=== PATIENT | female | born 1985 | race Caucasian/White ===

== ENCOUNTER → 2020-04-29 | Outpatient (CLI) | payer BC ==
--- NOTE | 2020-04-29 11:50 | FL ---
EXAMINATION TYPE: FL barium swallow DATE OF EXAM: 04/29/2020 CLINICAL HISTORY: Dysphasia. Globus sensation with feeling of food getting stuck in neck for 1 month per patient. TECHNIQUE: A double contrast esophagram is performed utilizing air and barium. A total of 28 second s of fluoroscopic time was utilized during procedure and 37 images obtained COMPARISON: None FINDINGS: The esophagus shows satisfactory motility and emptying into the stomach. No diverticulum. No evidence of hiatal hernia or stricture noted. No intraluminal mass. No significant gastroesophagea l reflux was seen during real time performance of this study. IMPRESSION: No significant abnormality is seen to account for patient's symptoms.
== END | disposition home or self-care (01) ==
LOC: RADFLMAIN 11:03
PROVIDERS: ATTEND Otolaryngology
DX: R13.10 Dysphagia, unspecified (principal)
CPT/HCPCS: 74220

== ENCOUNTER 2020-07-17 09:07 | Day surgery (SDC) | payer BC ==
[2020-07-15 13:02] VITALS: BMI 28.2
[~2020-07-17 09:07] MED LIST: LACTATED RINGERS 1,000 ML IV SCH; LIDOCAINE 1% (10MG/ML) FOR IV START INTRADERMA PRN
[2020-07-17 09:39] VITALS: BP 122/72; PULSE 87; RESP 16; TEMP 97.6
[2020-07-17] MEDS ORDERED: LIDOCAINE 1% (10MG/ML) FOR IV START INTRADERMA ONE (09:41)
[2020-07-17] MEDS ORDERED: PROPOFOL 10 MG/ML 20 ML VIAL IV ONE (09:53)
[2020-07-17] MEDS ORDERED: LIDOCAINE 1% INJ 10MG/ML (20 ML MDV) ONE (09:53)
--- NOTE | 2020-07-17 10:03 | P.PCN ---
Date of Procedure: 07/17/20 Procedure(s) Performed: BRIEF HISTORY: Patient is a 34-year-old, pleasant, . white female scheduled for an upper endoscopy as a part of evaluation of rectal fullness and throat discomfort and intermittent dysphagia for the last 4 months duration PROCEDURE PERFORMED: Esophagogastroduodenoscopy biopsy . PREOPERATIVE DIAGNOSIS: Globus sensation in her throat areaIV sedation per anesthesia. PROCEDURE: After informed consent was obtained, the patient was brought into the endoscopy unit. IV sedation was administered by Anesthesia under continuous monitoring. Initially the Olympus GIF-140 video endoscope was inserted into the mouth. Esophagus intubated without any difficulty. It was gradually advanced into the stomach and duodenum and carefully examined. The bulb and the second part of the duodenum appeared normal. The scope at this time was withdrawn to the stomach, adequately insufflated with air, and upon careful examination, mucosa of the antrum had patchy areas of erythema which was biopsied. The body, cardia and the fundus appeared normal. The scope was then withdrawn into the esophagus. The GE junction was located at 39 cm from the incisors. There were 2 superficial erosions at the GE junction consistent with LA grade C reflux esophagitis. The rest of the esophagus appeared normal. Abscesses were done from the distal esophagus and the patient tolerated the procedure well. IMPRESSION: 1. 2 superficial erosions at the GE junction consistent with LA grade B reflux esophagitis 2. Mild antral gastritis RECOMMENDATIONS: The findings of this examination were discussed with the patient as well as a family. She was advised to follow with the biopsy results. Her symptoms could be related to GERD and hence she will be given a trial of Prilosec 20 mg daily to be taken half hour before breakfast and follow antireflux measures
== END 2020-07-17 10:45 | disposition home or self-care (01) ==
LOC: ORWHC2ENDO 09:07
PROVIDERS: ATTEND Internal Medicine Gastroenterology
DX: K21.00 Gastro-esophageal reflux disease with esophagitis, without bleeding (principal); K29.50 Unspecified chronic gastritis without bleeding; R13.10 Dysphagia, unspecified; Z79.899 Other long term (current) drug therapy
CPT/HCPCS: 81025; 88305; 43239; J2001; J2704

== ENCOUNTER 2021-12-09 19:31 | Outpatient (CLI) | payer BC ==
[2021-12-09] MEDS ORDERED: CALCIUM CARBONATE 500 MG CHEWABLE PO PRN (20:01)
[2021-12-09 21:25] LABS: ALT 35 U/L (4-34); AST 51 U/L (14-36)
[2021-12-09] MEDS ORDERED: PANTOPRAZOLE 40 MG TABLET PO STA (21:52)
[2021-12-09 22:45] VITALS: BP 129/69; PULSE 80; RESP 18; TEMP 96.6
--- NOTE | 2021-12-16 20:14 | P.MSEPDOC ---
Presenting Problems - Arrival Data Date of Arrival on Unit: 12/09/21 Time of Arrival on Unit: 19:31 Mode of Transport: Ambulatory - Complaint OB-Reason for Admission/Chief Complaint: Pain, Other Comment: 11/10 sharp upper abdominal pain that lasted 25 minutes and started at 1800. Medical History - Information : 1 Para: 0 Term: 0 : 0 Abortions: Spontaneous or Elective: 0 Number of Living Children: 0 - Gestational Age Gestational Age by ALLISNO (wks/days): 31 Weeks and 2 Days Review of Systems - Review of Systems Constitutional: No problems Breast: No problems ENT: No problems Cardiovascular: No problems Respiratory: No problems Gastrointestinal: No problems Genitourinary: No problems Musculoskeletal: No problems Neurological: No problems Skin: No problems Vital Signs - Temperature Temperature: 96.6 F Temperature Source: Temporal Artery Scan - Pulse Right Pulse Oximetery Pulse Rate: 80 Pulse Assessment Method: Pulse Oximetry - Respirations Respiratory Rate: 18 Oxygen Delivery Method: Room Air O2 Sat by Pulse Oximetry: 98 - Blood Pressure Right Arm Blood Pressure: 129/69 Blood Pressure Mean: 89 Blood Pressure Source: Automatic Cuff Medical Screen Scoring - Uterine Contractions Frequency From (mins): 0 Frequency To (mins): 0 - Assessment - Baby A Baseline FHR: 140 Heart Rate - NICHD Category: Category I (Normal) NST: Reactive Physician Notification - Physician Notified Physician Notified Date: 12/09/21 Physician Notified Time: 19:31 Physician: Phong Ortega Order Received: Yes ( Called prior to pt arrival with orders) - Notification Comment Comment: pt then discharged following treatment it TR Maternal Triage Index - Maternal Triage Index Presenting for scheduled procedure w/no complaint: No - Stat/Priority 1 Stat Priority 1: No - Urgent/Priority 2 Urgent Priority 2: No - Prompt/Priority 3 Prompt Priority 3: No - Non-Urgent/Priority 4 Non-Urgent Priority 4: Yes Criteria Met for Priority 4: upper abdominal pain Disposition - Disposition OB Disposition: Discharge to home Discharge Date: 12/09/21 Discharge Time: 22:12 I agree with the RN Medical Screening Exam: Yes Physician's MSE Comment: I have neither seen nor examined the patient. Case reviewed; plan agreed upon as documented in EMR&OBIX.: Yes Diagnosis: RELATED CONDITIONS, UNSPECIFIED, THIRD TRIMESTER
== END 2021-12-09 22:12 | disposition home or self-care (01) ==
LOC: FBPOP 19:31
PROVIDERS: ATTEND Obstetrics & Gynecology
DX: O26.893 Other specified pregnancy related conditions, third trimester (principal); R10.10 Upper abdominal pain, unspecified; Z3A.31 31 weeks gestation of pregnancy
CPT/HCPCS: 36415; 59025; 84450; 84460; 99213

== ENCOUNTER → 2021-12-14 | Outpatient (CLI) | payer BC ==
--- NOTE | 2021-12-14 08:09 | US ---
EXAMINATION TYPE: US abdomen limited DATE OF EXAM: 12/14/2021 COMPARISON: NONE CLINICAL HISTORY: R10.84 Abd pain, R94.5 Abn Liver Functions. TECHNIQUE: Multiple sonographic images of the right upper quadrant are obtained. 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
== END | disposition home or self-care (01) ==
LOC: RADUSWWP 07:39
PROVIDERS: ATTEND Obstetrics & Gynecology
DX: R94.5 Abnormal results of liver function studies (principal)
CPT/HCPCS: 76705

== ENCOUNTER 2022-02-08 06:13 | Inpatient (IN) | payer BC ==
[2022-02-08] MEDS ORDERED: LIDOCAINE 0.5% (PF) 5 MG/ML (50 ML SDV) SQ PRN (06:49)
[2022-02-08] MEDS ORDERED: TERBUTALINE 1 MG/ML VIAL SQ PRN (06:49)
[2022-02-08 06:58] LABS: Basophils % (A) 0 %; Eosinophils # (A) 0.1 k/uL (0-0.7); Eosinophils % (A) 1 %; HGB 13.4 gm/dL (11.4-16.0); Lymphocytes # (A) 1.8 k/uL (1.0-4.8); Lymphocytes % (A) 18 %; MCH 30.9 pg (25.0-35.0); MCHC 35.3 g/dL (31.0-37.0); MCV 87.7 fL (80.0-100.0); Mean Platelet Volume 8.6; Monocytes # (A) 0.6 k/uL (0-1.0); Monocytes % (A) 6 %; Neutrophils # (A) 7.4 k/uL (1.3-7.7); Neutrophils % (A) 73 %; Platelet Count 219 k/uL (150-450); RBC 4.33 m/uL (3.80-5.40); RDW 13.2 % (11.5-15.5); WBC 10.1 k/uL (3.8-10.6)
[2022-02-08] MEDS ORDERED: OXYTOCIN 30 UNITS/500 ML NS 30 UNIT in SALINE 1 500ML.BAG IV SCH (07:00)
[2022-02-08] MEDS: LACTATED RINGERS 1,000 ML IV SCH ×2 (07:23→12:00)
[2022-02-08 07:35] LABS: Glucose,Whole Blood 83 mg/dL (70-110)
[2022-02-08] MEDS ORDERED: BUTORPHANOL 1 MG/ML 1 ML VIAL IV PRN (08:51)
--- NOTE | 2022-02-08 09:59 | P.HPOB ---
History of Present Illness H&P Date: 02/08/22 Chief Complaint: Here for elective induction of labor This is a 36-year-old female 1 para 0 EDC 02/08/2022 at 40 weeks gestation who presents today for induction with favorable cervix. is remarkable for gestational diabetes, blood sugar 83 on admission this morning. Patient denies vaginal bleeding or fluid leakage. Fetus is been active throughout the . Past medical history is essentially negative. Past surgical history hysterosalpingogram. Current medications vitamins daily, baby aspirin daily. ALLERGIES none known. Family history significant for hypertension, breast cancer, lung cancer. Social history patient is , her is present and involved. She works for [employer]. She denies alcohol tobacco or drug use. history significant for blood type A-, rubella status immune. Pap smear, VDRL testing, urine culture, hepatitis B surface antigen, HIV testing, gonorrhea and chlamydia cultures, group B strep cultures all negative. One hour Glucola to 18, patient monitoring blood sugars at home consistent with gestational diabetes. On exam patient is 5 foot 6 inches, 189 pounds, blood pressure 139/78, pulse 94, patient is afebrile. The general physical exam is within normal limits. The cervix is 3-4 cm dilated, 60-70% effaced, -2 station, anterior, soft, vertex presentation. Artificial amniorrhexis reveals clear fluid, slightly blood tinged, dark blood. heart rate is consistent with reactive NST. Impression: 40 week intrauterine , advanced maternal age, here for induction of labor, gestational diabetes with good blood sugar control. All signs reassuring. Plan: Oxytocin per hospital protocol. Close maternal and surveillance. Analgesic options reviewed. Anticipate normal spontaneous vaginal delivery. Review of Systems Constitutional: Reports as per HPI Past Medical History Additional Past Medical History / Comment(s): "feels like has a lump in my t hroat or it catches on something" Pt states she had it looked into and hasn't noticed that for at least 2 years. gestational diabetes History of Any Multi-Drug Resistant Organisms: None Reported Past Surgical History: No Surgical Hx Reported Past Anesthesia/Blood Transfusion Reactions: No Reported Reaction, Motion Sickness Past Psychological History: No Psychological Hx Reported Smoking Status: Never smoker Past Alcohol Use History: None Reported Past Drug Use History: None Reported - Past Family History Mother Family Medical History: No Reported History Father Family Medical History: Cancer Additional Family Medical History / Comment(s): lung Medications and Allergies Home Medications Medication Instructions Recorded Confirmed Type Aspirin [Children's Aspirin] 81 mg PO DAILY 12/09/21 02/08/22 History Loratadine [Claritin] 5 mg PO DAILY 12/09/21 02/08/22 History Vit No.179/Iron/Folic 1 each PO DAILY 12/09/21 02/08/22 History [ Tablet] Allergies Allergy/AdvReac Type Severity Reaction Status Date / Time No Known Allergies Allergy Verified 02/08/22 06:45 Exam Vital Signs Temp Pulse Resp BP Pulse Ox 02/08/22 06:44 97.0 F L 94 16 139/78 98 Intake and Output 02/07/22 02/08/22 02/08/22 22:59 06:59 14:59 Other: Weight 85.729 kg See dictation under HPI please Results Result Diagrams: 02/08/22 06:40 Assessment and Plan Assessment: 40 week intrauterine , advanced maternal age, gestational diabetes with good blood sugar control, here for induction of labor with all signs reassuring. Plan: Oxytocin per hospital protocol. Analgesic options reviewed. Continue close maternal and surveillance. Anticipate normal spontaneous vaginal delivery. Time with Patient: Less than 30
[2022-02-08] MEDS ORDERED: ROPIVACAINE 5 MG/ML 20 ML AMPULE ONE (11:47)
[2022-02-08] MEDS ORDERED: SODIUM CHLORIDE 0.9% 100 ML BAG ONE (11:47)
[2022-02-08] MEDS ORDERED: fentaNYL (PF) 50 MCG/ML 5 ML AMP ONE (11:47)
[2022-02-08] MEDS ORDERED: ROPIVACAINE 100 MG, fentaNYL (PF). 200 MCG in SODIUM CHLORIDE 0.9% 76 ML EPIDURAL ONE (12:45)
[2022-02-08] MEDS ORDERED: diphenhydrAMINE ELIXIR 25 MG/10 ML CUP PO PRN (18:26)
[2022-02-08] MEDS ORDERED: ACETAMINOPHEN TAB 325 MG TAB PO PRN (18:26)
[2022-02-08] MEDS ORDERED: diphenhydrAMINE 50 MG CAP PO PRN (18:26)
[2022-02-08] MEDS ORDERED: BENZOCAINE/MENTHOL SPRAY 1 GM/SPRAY AEROSOL TOPICAL PRN (18:26)
[2022-02-08] MEDS ORDERED: HYDROCORTISONE 2.5% RECTAL CREAM 30 GM TUBE RECTAL PRN (18:26)
[2022-02-08] MEDS ORDERED: ZOLPIDEM 5 MG TAB PO PRN (18:26)
[2022-02-08] MEDS ORDERED: diphenhydrAMINE 50 MG/ML 1 ML VIAL IVP PRN ×2 (18:26)
[2022-02-08] MEDS ORDERED: diphenhydrAMINE 25 MG CAP PO PRN (18:26)
[2022-02-08] MEDS ORDERED: SIMETHICONE 80 MG CHEWABLE PO PRN (18:26)
[2022-02-08] MEDS ORDERED: LANOLIN CREAM 5 GM TUBE TOPICAL PRN (18:26)
--- NOTE | 2022-02-08 18:26 | P.PROBDLV ---
Vaginal Delivery Note - . Vaginal Delivery Note: This is a 36-year-old female 1 para 0 EDC 02/08/2022 at 40 weeks gestation who presented today for induction with gestational diabetes, advanced maternal age. Blood type is O-, group B strep cultures negative, rubella status immune. Please see dictated history and physical for details. Artificial amniorrhexis revealed clear fluid. Oxytocin was started and titrated per hospital protocol. Epidural was placed per the patient's request. She progressed well through the first stage of labor was judged to be completely dilated at 1715 hrs. Second stage of labor began at that time. With excellent maternal expulsive efforts, gradual station was accomplished. Ultimately the perineal body was prepped and draped in usual sterile fashion. 's head delivered occiput anterior and she restituted accordingly. There was a tight nuchal cord that was reduced easily. The left or anterior shoulder was delivered from underneath the pubic symphysis easily at which time the oropharynx, nasopharynx, and external nares were all bulb suctioned on the perineal body. Patient was officially delivered of a liveborn female at 1806 hrs. Umbilical cord was doubly clamped and ligated, she was handed to waiting nurses for evaluation where scores of 9 and 9 at one and 5 minutes respectively were given. Cord blood was sent to the lab for Rh- status. Placenta was delivered spontaneously with active management, it was inspected and noted to be intact with trivascular cord at 1808 hrs. Uterus is then massaged. Careful inspection of the cervix, vagina, perineum, periurethral, and perirectal areas revealed a small second-degree perineal laceration, injected with lidocaine and repaired in the usual fashion with repeat suture. Total estimated blood loss 200 mL's. All sponge needle and enhancement counts are correct. Infant weighs 8 lbs. 8 oz. or 3850 g. Patient is allowed to begin the bonding experience in the LDR.
[2022-02-08 19:25] VITALS: RESP 16
[2022-02-08] MEDS: IBUPROFEN 600 MG TAB PO SCH (19:32)
[2022-02-08] MEDS: SENNOSIDES-DOCUSATE SODIUM 1 EACH TAB PO SCH (19:33)
[2022-02-09] MEDS: IBUPROFEN 600 MG TAB PO SCH ×4 (00:38→21:07)
--- NOTE | 2022-02-09 07:55 | P.DS ---
Providers Date of admission: 02/08/22 06:13 Expected date of discharge: 02/09/22 Attending physician: Amanda Pearson Primary care physician: Stated None Hospital Course: This is a 36-year-old female 1 para 0 EDC 02/08/2022 weeks' gestation. Patient presented for induction of labor with favorable cervix. Blood type A-, rubella status immune, group B strep cultures negative. is remarkable for gestational diabetes, good control, admitting blood sugar 83. Please see dictated history and physical for details. Patient went on to deliver a liveborn female with scores of 9 and 9 at one and 5 minutes respectively. There was a nuchal cord 1, a second-degree perineal laceration. Infant weight 8 lbs. 8 oz., or 3850 g. Estimated blood loss 200 mL's. Please see dictated delivery note for details. This morning the patient is doing well. She is voiding, ambulating, passing flatus without difficulty. Vital signs are stable and she is afebrile. [place] infant is doing well. Breast-feeding is going well. Fundus is firm and in the midline, symmetric and 18 week size. Extremities are negative for edema. Patient is being discharged home and will follow-up with me in the office in 6 weeks. She is reminded no intercourse, tampons or douching. She will use [id number] Advil or Aleve, or Motrin as needed for pain. She will call with any fevers shakes or chills, foul smelling or copious lochia, with the passage of large blood clots, or indeed with any concerns. Contemplated contraceptive options and this will be discussed further in the office. Assessment: Doing well day #1 Patient Condition at Discharge: Good Plan - Discharge Summary Discharge Rx Participant: No New Discharge Prescriptions: No Action Aspirin [Children's Aspirin] 81 mg PO DAILY Vit No.179/Iron/Folic [ Tablet] 1 each PO DAILY Loratadine [Claritin] 5 mg PO DAILY Discharge Medication List Aspirin [Children's Aspirin] 81 mg PO DAILY 12/09/21 [History] Loratadine [Claritin] 5 mg PO DAILY 12/09/21 [History] Vit No.179/Iron/Folic [ Tablet] 1 each PO DAILY 12/09/21 [History] Follow up Appointment(s)/Referral(s): Amanda Pearson MD [STAFF PHYSICIAN] - 6 Weeks
[2022-02-09] MEDS: SENNOSIDES-DOCUSATE SODIUM 1 EACH TAB PO SCH ×2 (08:24→21:07)
[2022-02-09] MEDS: LACTATED RINGERS 1,000 ML IV SCH (08:32)
[2022-02-10] MEDS: IBUPROFEN 600 MG TAB PO SCH ×3 (02:05→13:46)
[2022-02-10 08:10] VITALS: PULSE 80
[2022-02-10] MEDS: SENNOSIDES-DOCUSATE SODIUM 1 EACH TAB PO SCH (08:11)
[2022-02-10 15:53] VITALS: BP 133/77; TEMP 98.6
== END 2022-02-10 17:47 | disposition home or self-care (01) | DRG 807 ==
LOC: 4FBP 06:13
PROVIDERS: ADMIT Obstetrics & Gynecology; ATTEND Obstetrics & Gynecology
PROC: 10E0XZZ Delivery of Products of Conception, External Approach (ICD-10-PCS; principal; 2022-02-08)
PROC: 0KQM0ZZ Repair Perineum Muscle, Open Approach (ICD-10-PCS; 2022-02-08)
PROC: 10907ZC Drainage of Amniotic Fluid, Therapeutic from Products of Conception, Via Natural or Artificial Opening (ICD-10-PCS; 2022-02-08)
PROC: 3E0R3BZ Introduction of Anesthetic Agent into Spinal Canal, Percutaneous Approach (ICD-10-PCS; 2022-02-08)
PROC: 3E033VJ Introduction of Other Hormone into Peripheral Vein, Percutaneous Approach (ICD-10-PCS; 2022-02-08)
DX: O24.429 Gestational diabetes mellitus in childbirth, unspecified control (principal); Z37.0 Single live birth; O69.1XX0 Labor and delivery complicated by cord around neck, with compression, not applicable or unspecified; O70.1 Second degree perineal laceration during delivery; Z79.82 Long term (current) use of aspirin; Z3A.40 40 weeks gestation of pregnancy
CPT/HCPCS: 82947; 85025; 86850; 86900; 86901

== ENCOUNTER 2023-09-20 06:00 | Inpatient (IN) | payer BC ==
[2023-09-20] MEDS ORDERED: METHYLERGONOVINE 0.2 MG/ML 1 ML AMP IM PRN (06:39)
[2023-09-20] MEDS ORDERED: miSOPROStoL 200 MCG TAB PO PRN (06:39)
[2023-09-20] MEDS ORDERED: TRANEXAMIC 1,000 MG/100ML-NACL 1,000 MG in EMPTY BAG 1 BAG IV PRN (06:39)
[2023-09-20] MEDS ORDERED: CARBOPROST TROMETHAMINE 250 MCG/ML 1 ML AMP IM PRN (06:39)
[2023-09-20] MEDS ORDERED: TERBUTALINE 1 MG/ML VIAL SQ PRN (06:39)
[2023-09-20] MEDS ORDERED: OXYTOCIN 10 UNIT/ML 1 ML VIAL IM PRN (06:39)
[2023-09-20 06:43] LABS: Glucose,Whole Blood 87 mg/dL (70-110)
[2023-09-20] MEDS: LACTATED RINGERS 1,000 ML IV SCH (06:54)
[2023-09-20] MEDS: OXYTOCIN 30 UNITS/500 ML NS 30 UNIT in SALINE 1 500ML.BAG IV SCH (06:55)
[2023-09-20 06:58] LABS: Basophils % (A) 0 %; Eosinophils # (A) 0.1 k/uL (0-0.7); Eosinophils % (A) 1 %; HCT 37.2 % (34.0-46.0); HGB 12.3 gm/dL (11.4-16.0); Lymphocytes # (A) 2.2 k/uL (1.0-4.8); Lymphocytes % (A) 22 %; MCHC 33.2 g/dL (31.0-37.0); MCV 90.4 fL (80.0-100.0); Mean Platelet Volume 8.7; Monocytes # (A) 0.7 k/uL (0-1.0); Monocytes % (A) 7 %; Neutrophils # (A) 6.8 k/uL (1.3-7.7); Neutrophils % (A) 69 %; Platelet Count 171 k/uL (150-450); RBC 4.11 m/uL (3.80-5.40); RDW 13.4 % (11.5-15.5); WBC 9.9 k/uL (3.8-10.6)
--- NOTE | 2023-09-20 08:56 | P.HPOB ---
History of Present Illness H&P Date: 09/20/23 Chief Complaint: Scheduled induction of labor Ms. Rosenberg is a 38 year old at 39 weeks and 1 day with EDC of 09/26/2023 who presents for scheduled induction of labor for diet-controlled gestational diabetes. She has been undergoing surveillance which has all been reassuring. The is also complicated by congenitally short right femur for which she has had a consultation with MFM as well as [place] [facility] [place] The patient is also Rh negative for which she did receive rhogam in the 3rd trimester. Obstetric history: 1 full term vaginal delivery without complications work-up: blood type A negative, antibody negative, rubella immune, VDRL non-reactive, HBsAg negative, HIV negative, HCV Ab negative, gonorrhea negative, chlamydia negative, 1 hour GTT 206, GBS negative. s/p TDap. Past Medical History Additional Past Medical History / Comment(s): "feels like has a lump in my throat or it catches on something" Pt states she had it looked into and hasn't noticed that for at least 2 years. gestational diabetes History of Any Multi-Drug Resistant Organisms: None Reported Past Surgical History: No Surgical Hx Reported Past Anesthesia/Blood Transfusion Reactions: No Reported Reaction, Motion Sickness Past Psychological History: No Psychological Hx Reported Smoking Status: Never smoker Past Alcohol Use History: None Reported Past Drug Use History: None Reported - Past Family History Mother Family Medical History: No Reported History Father Family Medical History: Cancer Additional Family Medical History / Comment(s): lung Medications and Allergies Home Medications Medication Instructions Recorded Confirmed Type Aspirin [Children's Aspirin] 81 mg PO DAILY 12/09/21 02/08/22 History Loratadine [Claritin] 5 mg PO DAILY 12/09/21 02/08/22 History Vit No.179/Iron/Folic 1 each PO DAILY 12/09/21 02/08/22 History [ Tablet] Allergies Allergy/AdvReac Type Severity Reaction Status Date / Time No Known Allergies Allergy Verified 09/20/23 06:37 Exam Vital Signs Temp Pulse Resp BP Pulse Ox 09/20/23 06:16 97.2 F L 89 15 125/76 97 Intake and Output 09/19/23 09/20/23 09/20/23 22:59 06:59 14:59 Other: Weight 88.904 kg Focused physical exam is performed. This is a healthy-appearing in no apparent distress. Breathing is non-labored. Abdomen is gravid and non-tender. Cervical exam is 3 cm, 50 effacement, -2 station. AROM is undertaken with clear fluid noted. Extremities non-tender and non-edematous. heart tones are Category I and tocometer is graphing contractions every 2-4 minutes. Results Result Diagrams: 09/20/23 06:45 Assessment and Plan Assessment: 38 year old at 39 weeks and 1 day with A1GDM and fetus affected by congenitally short right femur presenting for scheduled IOL Plan: Admit, clear liquid diet, pitocin per protocol, epidural prn, continuous EFM and tocometer, close monitoring of patient. Anticipate vaginal delivery. Time with Patient: Less than 30
[2023-09-20] MEDS ORDERED: SODIUM CHLORIDE 0.9% 250 ML BAG ONE (12:55)
[2023-09-20] MEDS ORDERED: fentaNYL (PF) 50 MCG/ML 5 ML AMP ONE (12:55)
[2023-09-20] MEDS ORDERED: ROPIVACAINE 5 MG/ML 30 ML VIAL ONE (12:55)
[2023-09-20] MEDS ORDERED: diphenhydrAMINE 25 MG CAP PO PRN (18:00)
[2023-09-20] MEDS ORDERED: diphenhydrAMINE 50 MG CAP PO PRN (18:00)
[2023-09-20] MEDS ORDERED: diphenhydrAMINE 50 MG/ML 1 ML VIAL IVP PRN ×2 (18:00)
[2023-09-20] MEDS ORDERED: HYDROCORTISONE 2.5% RECTAL CREAM 30 GM TUBE RECTAL PRN (18:00)
[2023-09-20] MEDS ORDERED: ZOLPIDEM 5 MG TAB PO PRN (18:00)
[2023-09-20] MEDS ORDERED: SIMETHICONE 80 MG CHEWABLE PO PRN (18:00)
[2023-09-20] MEDS ORDERED: LANOLIN CREAM 1 GM TUBE TOPICAL PRN (18:00)
--- NOTE | 2023-09-20 18:00 | P.PROBDLV ---
Vaginal Delivery Note - . Vaginal Delivery Note: DATE OF SERVICE: 09/20/2023 PROCEDURE: Normal Vaginal Delivery ATTENDING: Dr. Denisha Davila MD ESTIMATED BLOOD LOSS: 300 mL FINDINGS: VMI, Apgars 7/9. Weight 3970 grams (8 pounds and 12 ounces) PROCEDURE: Ms. Rosenberg is a 38 year old at 39 weeks and 1 day presenting to labor and delivery for medical induction of labor for diet-controlled gestational diabetes. The has been complicated by congenital short right femur. For further details, please review the admitting H&P. Pitocin was titrated per protocol. Amniotomy was performed at 812 revealing clear amniotic fluid. The patient received epidural anesthesia per her request. The patient was completely dilated at 1647. She pushed for 23 minutes and brought the head to a crown. A viable male was delivered at 1739. The infant was placed on the maternal abdomen and bulb suctioned. The infant was noted to be spontaneously crying. Cord was clamped and cut after a 30-second delay. The infant was handed off to the pediatric team. Placenta was delivered whole with gentle cord traction at 1743. Oxytocin was started to facilitate uterine tone. Uterine fundus was found to be firm and below the umbilicus upon fundal massage. Thorough examination of the cervix, vagina, periurethral area, and perineum revealed a second degree laceration. The perineum was infiltrated with lidocaine an repaired with 2-0 Vicryl in the usual fashion. The patient is stable and allowed to begin the bonding process.
[2023-09-20] MEDS: LIDOCAINE 0.5% (PF) 5 MG/ML (50 ML SDV) SQ PRN (18:09)
[2023-09-20] MEDS: BENZOCAINE/MENTHOL SPRAY 1 GM/SPRAY AEROSOL TOPICAL PRN (18:10)
[2023-09-20] MEDS: IBUPROFEN 600 MG TAB PO PRN (18:34)
[2023-09-20] MEDS: SENNOSIDES-DOCUSATE SODIUM 1 EACH TAB PO SCH (21:17)
[2023-09-20] MEDS: Rhogam IMMUNE GLOBULIN 1,500 UNIT/1 ML IM ONE (22:52)
[2023-09-21] MEDS: ACETAMINOPHEN TAB 325 MG TAB PO PRN (04:19)
[2023-09-21 08:28] LABS: Basophils % (A) 0 %; Eosinophils # (A) 0.1 k/uL (0-0.7); Eosinophils % (A) 0 %; HCT 34.4 % (34.0-46.0); HGB 11.4 gm/dL (11.4-16.0); Lymphocytes # (A) 1.8 k/uL (1.0-4.8); Lymphocytes % (A) 14 %; MCH 30.7 pg (25.0-35.0); MCHC 33.1 g/dL (31.0-37.0); Mean Platelet Volume 8.5; Monocytes # (A) 0.8 k/uL (0-1.0); Monocytes % (A) 6 %; Neutrophils # (A) 10.7 k/uL (1.3-7.7); Neutrophils % (A) 79 %; Platelet Count 165 k/uL (150-450); RDW 13.5 % (11.5-15.5); WBC 13.5 k/uL (3.8-10.6)
--- NOTE | 2023-09-21 08:45 | P.DS ---
Providers Date of admission: 09/20/23 06:14 Expected date of discharge: 09/21/23 Attending physician: Denisha Davila MD Primary care physician: Stated None Hospital Course: 38 year old now PPD#1 s/p normal vaginal delivery. The was complicated by diet-controlled gestational diabetes for which she was induced at 39 weeks without complications. The patient is doing well this morning and had no acute events overnight. She has no complaints this morning. She reports minimal lochia, passing flatus, voiding without difficulty, ambulating, and eating/drinking without nausea or vomiting. doing well at bedside, s/p circumcision. She denies chest pain, shortness of breathing, fevers, or chills overnight. She denies pain or swelling in the legs. Postoperative restrictions are reviewed with the patient including pelvic rest for 6 weeks. The patient is encouraged to call the office if she experiences any heavy bleeding, foul- smelling discharge, breast complaints, or any if she has any other concerns. She will follow up in the office with in 6 weeks for postoperative exam. All questions are answered. Assessment: 38 year old PPD#1 s/p normal vaginal delivery Patient Condition at Discharge: Good Plan - Discharge Summary New Discharge Prescriptions: No Action Aspirin [Children's Aspirin] 81 mg PO DAILY Vit No.179/Iron/Folic [ Tablet] 1 each PO DAILY Loratadine [Claritin] 5 mg PO DAILY Discharge Medication List Aspirin [Children's Aspirin] 81 mg PO DAILY 12/09/21 [History] Loratadine [Claritin] 5 mg PO DAILY 12/09/21 [History] Vit No.179/Iron/Folic [ Tablet] 1 each PO DAILY 12/09/21 [History] Follow up Appointment(s)/Referral(s): Denisha Davila MD [STAFF PHYSICIAN] - 11/01/23 9:15 am Activity/Diet/Wound Care/Special Instructions: Instructions 1. Do not begin any exercise program for 3 weeks. 2. Do not resume sexual relations for 6 weeks or longer if uncomfortable. 3. You may take tub baths or showers at any time. 4. You may use tampons if desired after 6 weeks. 5. Keep any areas repaired with stitches clean and dry. 6. If you are not nursing, wear a good fitting, supportive bra during the day and limit fluid intake for at least 1 week to prevent breast engorgement. 7. Call the office, , within the next week to make appointment for your 6 week checkup if it has not already been made. 8. Report any of the following occurrences to the doctor promptly: a. Heavy, excessive bleeding b. Chills, fever c. Burning or frequency of urination d. Pain or redness and breasts if nursing e. Increasing pain or swelling of vulva (stitches). In addition to the above instructions, the following additional should be followed: 1. No heavy lifting or straining (exercising) until after 6 week checkup. 2. Keep abdominal incision clean and dry: You may wear a dressing if more comfortable. 3. Make office appointment for 2 weeks after delivery date. Discharge Disposition: HOME SELF-CARE
[2023-09-21 16:04] VITALS: BP 111/68; PULSE 83; RESP 17; TEMP 98.1
== END 2023-09-21 18:50 | disposition home or self-care (01) | DRG 807 ==
LOC: 4FBP 06:14
PROVIDERS: ADMIT Obstetrics & Gynecology; ATTEND Obstetrics & Gynecology
PROC: 10E0XZZ Delivery of Products of Conception, External Approach (ICD-10-PCS; principal; 2023-09-20)
PROC: 0KQM0ZZ Repair Perineum Muscle, Open Approach (ICD-10-PCS; principal; 2023-09-20)
PROC: 10907ZC Drainage of Amniotic Fluid, Therapeutic from Products of Conception, Via Natural or Artificial Opening (ICD-10-PCS; principal; 2023-09-20)
PROC: 3E033VJ Introduction of Other Hormone into Peripheral Vein, Percutaneous Approach (ICD-10-PCS; principal; 2023-09-20)
DX: O24.420 Gestational diabetes mellitus in childbirth, diet controlled (principal); O35.HXX0 Maternal care for other (suspected) fetal abnormality and damage, fetal lower extremities anomalies, not applicable or unspecified; O70.1 Second degree perineal laceration during delivery; Z79.82 Long term (current) use of aspirin; Z79.899 Other long term (current) drug therapy; Z3A.39 39 weeks gestation of pregnancy; Z37.0 Single live birth
CPT/HCPCS: 85025; 86850; 86870; 86880; 86900; 86901